=== PATIENT | male | born 1970 | race Caucasian/White ===

== ENCOUNTER 2023-05-23 08:12 | Outpatient (OUT) | payer BC, SELFPAY ==
[2023-05-24 04:07] LABS: CA 19-9 5 U/mL (0-35)
== END 2023-05-23 08:13 | disposition home or self-care (01) ==
PROVIDERS: PCP Family Medicine; Visit Provider Nurse Practitioner Family
DX: Z80.0 Family history of malignant neoplasm of digestive organs (principal)
CPT/HCPCS: 36415; 86301

== ENCOUNTER 2023-10-31 07:41 | Outpatient (OUT) | payer BC, SELFPAY ==
--- NOTE | 2023-10-31 07:57 | XR_ITS ---
The [address] [address] Patient Name: DOMINGO NIX MRN: [id number] date: 1970 Sex: M Assigned Patient Location: LAB Current Patient Location: LAB Accession/Order Number: [id number] Exam Date: 10/31/2023 08:00 Report Date: 10/31/2023 08:33 At the request of: IAM GIRON Procedure: XR chest 2V EXAMINATION: XR chest 2V HISTORY: Chronic Cough R05.3 COMPARISON: 08/31/2020 TECHNIQUE: PA and lateral FINDINGS: LUNGS: No significant pulmonary parenchymal abnormalities. VASCULATURE: No increased pulmonary vasculature. PLEURA: No pneumothorax, effusion, or pleural thickening. CARDIAC: No cardiomegaly or cardiac silhouette abnormality. MEDIASTINUM: No visible mass or adenopathy. BONES: No fracture or visible bone lesion. Remote healed right mid clavicle fracture OTHER: Negative. XR/XR chest 2V IMPRESSION: No acute cardiopulmonary process Electronically authenticated by: HI CASTRO Date: 10/31/2023 08:33
[2023-10-31 08:07] LABS: Basophils Absolute Auto 0.1 10^3/uL (0.0-0.1); Eosinophils Absolute Auto 0.6 10^3/uL (0.0-0.7); Eosinophils Percent Auto 7.2 % (0.9-7.0); Hematocrit 49.2 % (42.0-54.0); Hemoglobin 16.3 g/dL (14.0-18.0); Immature Granulocytes Abs Auto 0.08 10^3/uL (0.00-0.03); Mean Corpuscular HGB Conc 33.1 g/dL (29.9-35.2); Mean Corpuscular Volume 93.7 fL (80.0-94.0); Mean Platelet Volume 9.6 fL (9.5-13.5); Monocytes Absolute Auto 0.8 10^3/uL (0.3-0.8); Monocytes Percent Auto 10.3 % (1.7-12.0); Neutrophils Absolute Auto 4.2 10^3/uL (1.4-6.5); Neutrophils Percent Auto 54.5 % (43.0-75.0); Platelet Count 303 10^3/uL (150-450); Red Blood Count 5.25 10^6/uL (4.70-6.10); Red Cell Distribution Width 12.7 % (11.0-15.0); White Blood Count 7.6 10^3/uL (4.0-11.0)
[2023-10-31 08:53] LABS: Estimated Average Glucose 114 mg/dL; Glycohemoglobin A1C 5.6 % (4.5-6.2)
[2023-10-31 09:02] LABS: Alanine Aminotransferase 48 U/L (16-63); Albumin Globulin Ratio 0.9; Albumin Level 3.6 g/dL (3.4-5.0); Alkaline Phosphatase 79 U/L (46-116); Anion Gap 15.8; Aspartate Amino Transferase 25 U/L (15-37); BUN Creatinine Ratio 14.5; Bilirubin Total 0.7 mg/dL (0.2-1.0); Calcium 8.8 mg/dL (8.5-10.1); Carbon Dioxide 26.2 mmol/L (21.0-32.0); Chloride 103 mmol/L (98-107); Cholesterol 236 mg/dL (<=200); Estimated GFR (African America >60 (>=60); Estimated GFR (Non-African Ame >60 (>=60); Globulin 3.8 g/dL; Glucose 89 mg/dL (74-106); HDL Cholesterol 59 mg/dL (40-60); Sodium 141 mmol/L (136-145); Total Protein 7.4 g/dL (6.4-8.2); Triglycerides 121 mg/dL (<=150); VLDL CHOLESTEROL 24.2 mg/dL
[2023-10-31 09:39] LABS: Prostate Specific Antigen Scrn 3.87 ng/mL (<=4.00)
== END 2023-10-31 07:42 | disposition home or self-care (01) ==
LOC: LAB 07:41
PROVIDERS: PCP Family Medicine; Visit Provider Family Medicine
DX: Z00.00 Encounter for general adult medical examination without abnormal findings (principal); R05.3 Chronic cough; Z12.5 Encounter for screening for malignant neoplasm of prostate
CPT/HCPCS: 36415; 71046; 80053; 80061; 83036; 85025; G0103

== ENCOUNTER 2025-01-30 07:17 | Outpatient (OUT) | payer OTHER, SELFPAY ==
[2025-01-30 07:57] LABS: Basophils Absolute Auto 0.1 10^3/uL (0.0-0.1); Eosinophils Absolute Auto 0.6 10^3/uL (0.0-0.7); Hematocrit 46.8 % (42.0-54.0); Hemoglobin 15.8 g/dL (14.0-18.0); Immature Granulocytes Abs Auto 0.11 10^3/uL (0.00-0.03); Immature Granulocytes Pct Auto 1.4 % (0.0-0.5); Lymphocytes Absolute Auto 2.3 10^3/uL (1.2-3.8); Lymphocytes Percent Auto 28.1 % (20.5-60.0); Mean Corpuscular HGB Conc 33.8 g/dL (29.9-35.2); Mean Corpuscular Hemoglobin 31.4 pg (25.9-34.0); Mean Platelet Volume 9.8 fL (9.5-13.5); Monocytes Absolute Auto 0.7 10^3/uL (0.3-0.8); Monocytes Percent Auto 8.4 % (1.7-12.0); Neutrophils Absolute Auto 4.3 10^3/uL (1.4-6.5); Neutrophils Percent Auto 53.1 % (43.0-75.0); Platelet Count 255 10^3/uL (150-450); Red Blood Count 5.03 10^6/uL (4.70-6.10); Red Cell Distribution Width 12.7 % (11.0-15.0)
[2025-01-30 09:45] LABS: Alanine Aminotransferase 30 U/L (16-63); Albumin Globulin Ratio 1.1; Albumin Level 3.4 g/dL (3.4-5.0); Alkaline Phosphatase 76 U/L (46-116); Anion Gap 12.1; Aspartate Amino Transferase 17 U/L (15-37); BUN Creatinine Ratio 13.9; Bilirubin Total 0.4 mg/dL (0.2-1.0); Calcium 8.8 mg/dL (8.5-10.1); Chloride 107 mmol/L (98-107); Cholesterol 214 mg/dL (<=200); Estimated GFR (African America >60 (>=60 mL/min/1.73m^2); Estimated GFR (Non-African Ame >60 (>=60 mL/min/1.73m^2); Free T3 2.83 pg/mL (2.18-3.98); Glucose 95 mg/dL (74-106); HDL Cholesterol 53 mg/dL (40-60); Potassium 4.1 mmol/L (3.5-5.1); Sodium 141 mmol/L (136-145); Thyroid Stimulating Hormone 2.785 uIU/mL (0.358-3.740); Total Protein 6.4 g/dL (6.4-8.2); Triglycerides 106 mg/dL (<=150); Uric Acid 4.5 mg/dL (3.5-7.2); VLDL CHOLESTEROL 21.2 mg/dL
[2025-01-30 10:19] LABS: Estimated Average Glucose 120 mg/dL; Glycohemoglobin A1C 5.8 % (4.5-6.2)
[2025-01-31 04:07] LABS: CA 19-9 6 U/mL (0-35); PSA, Free 0.99 ng/mL; Prostate Specific Ag 3.6 ng/mL (0.0-4.0)
[2025-01-31 09:08] LABS: Insulin 15.9 uIU/mL (2.6-24.9)
== END 2025-01-30 07:18 | disposition home or self-care (01) ==
LOC: LAB 07:21
PROVIDERS: PCP Family Medicine; Visit Provider Family Medicine
DX: Z00.00 Encounter for general adult medical examination without abnormal findings (principal); R34 Anuria and oliguria; Z12.5 Encounter for screening for malignant neoplasm of prostate
CPT/HCPCS: 36415; 80053; 80061; 83036; 83525; 84153; 84154; 84436; 84443; 84481; 84550; 85025; 86301

== ENCOUNTER 2025-06-13 08:14 | Outpatient (OUT) | payer OTHER, SELFPAY ==
--- OUTSIDE RECORDS SUMMARY | 2025-01-28 09:45 | XMS_ITS ---
Author Organization The [facility] in [place] Address [address] [place] [address] Care Team Providers Care Physician Specialist Name Role Phone Fernando Dai Primary Care Provider [phone] Allergies No Known Allergies Results Component Value Reference Range Notes UA DIP NONAUTO WO MICRO (810 02) - IN OFFICE Reviewed date:01/28/2025 01:15:51 PM Interpretation: Performing Lab: Notes/Report: COLOR Yellow CLARITY Clear GLUCOSE Neg BILIRUBIN Neg KETONE Neg SPECIFIC GRAVITY 1.010 BLOOD Neg PH 6 PROTEIN Neg UROBILINOGEN Neg NITRITE Neg LEUKOCYTE ESTERASE Neg REASON FOR VISIT Prostate Questions, Energy Level Down, Trouble with Urination Medications Medication SIG (Take, Route, Fr equency, Duration) Notes Start Date End Date Status levoFLOXacin 750 MG 1 tablet Orally Once a day for 10 days 01/28/2025 Active Social History Tobacco Use: Social History Observation Description Date Details (start date - stop date) Light tobacco s moker NA - NA Tobacco Use/Smoking Question Answer Notes Patient is a light tobacco smoker AUDIT-C (Standard) Question Answer Notes Did you have a drink containing alcohol in the p ast year? No Points 0 Interpretation Negative Vital Signs Weight 247.0 lbs 01/28/2025 Height 71 in 01/28/2025 Blood pressure systolic 124 mm Hg 01/29/20 25 Blood pressure diastolic 84 mm Hg 025 BMI 34.45 kg/m2 01/28/2025 Encounters Encounter Location Date Provider Diagnosis [facility] [address] [place] [address] 01/28/2025 Fernando Dalecintia Urination decrease R 34 and Well adult Z00.00 Assessments Encounter Date Diagnosis (ICD Code) Assessment Notes Treatment Notes Treatment Clinical Notes Section Notes 01/28/2025 Urination decrease (ICD-10 - R34) 01/28/2025 Well adult (ICD-10 - Z00.00) Plan Of Treatment Medication Medication Name Sig Start Date Stop Date Notes levoFLOXacin 750 MG 1 tablet Orally Once a day for 10 days 01/28/2025 Pending Test Test Name Order Date HEMOGLOBIN A1C (GLYCO) 01/28/2025 INSULIN, TOTAL 01/28/2025 LIPID PANEL (CHOL/TRIG/HDL/LDL) 01/29/20 25 URIC ACID 01/28/2025 PSA-FREE AND TOTAL 01/28/2025 STOOL OCCULT BLOOD 01/28/2025 CA 19-9 01/28/2025 THYROID PANEL (T4/TSH/FREE T3) CMP (COMP MET MENDEZ) w/eGFR CKD-EPI 2024 CBC WITH DIFF 01/28/2025 Progress Notes * Kristopher ARCE ADOB: 2 (54 yo M)Acc No.[id number]:01/28/2025 Progress Note Patient: Kristopher DENG Provider: Leigh Dai ([facility])MD :1970 A ge:54 Y S ex:Male Date:01/28/2025 Address:[address] [place], [place] [id number] Check In:12:58 PM ESTCheck O ut:01:22 PM EST Subjective: * Chief Complaints: * P rostate QuestionsEnergy Level Down, Trouble with Urination * HPI: G eneral: prostat issues - getting up 2-3 tyoe a night - been going on for awhile. * ROS: E ENT: hearing changes d enies. v isual changes d enies.?non-healing mouth sores d enies. s wollen glands or neck lumps d enies. h oarseness d enies. s ore throat d enies. d ifficulty swallowing d enies. n ose bleeds d enies. n lori congestion d enies. e ar ache d enies. e ar discharge?denies. r inging in ears d enies. l ight sensitivity d enies. e ye pain d enies. b lurring d enies. e ye irritation d enies. d ouble vision d enies.?vision loss d enies. G eneral/Constitutional: Sweats: D enies. F atigue d enies. S leep problems d enies. A norexia d enies. M alaise d enies. W eight loss d enies.?Fatigue or Weakness d enies. F ever or Chills d enies. C ardiovascular: Shortness of Breath w/lying flat d enies. L ightheadedness/dizziness d enies. C hest tightness/ heavy pressure d enies. S welling of legs, ankles, or feet d enies. W aking up with shortness of breath d enies. C hest pain denies. P alpitations d enies. W eight gain d enies. R espiratory: Chronic or frequent cough d enies. C oughing up blood?denies. D ifficulty breathing d enies. P roductive cough d enies. S noring?denies. S hortness of breath that awakens from sleep (PND) d enies. C hest pain d enies. S putum production d enies. W heezing d enies. M usculoskeletal: Joint pain d enies. J oint Fluid d enies. B ack pain d enies. K nee pain d enies. N willow pain d enies. J oint Stiffness d enies. M uscle cramps d enies. W eakness of muscles d enies. A rthritis d enies. M uscle aches d enies. P ain in shoulder(s) d enies. S wollen joints d enies. * Active Problem List K20.0 Eosinophilic esophag itis Modified On:03/07/2023W/U Status:confirmed N45.1 Epididymitis Modified On:03/07/2023W/U Status:confirmed S42.017A Nondisplaced fractur e of sternal end of right clavicle, initial encounter for closed fracture Modified On:03/07/2023 Status:confirmed T18.128A Food in esophagus ca using other injury, initial encounter Modified On:03/07/2023 Status:confirmed Z71.9 Counseling, unspecif ied Modified On:03/07/2023 Status:confirmed G56.00 Carpal tunnel syndro me Modified On:03/07/2023 Status:confirmed K21.9 Esophageal reflux Modified On:03/07/2023 Status:confirmed M54.9 Back pain Modified On:03/07/2023 Status:confirmed M51.27 Lumbosacral disc her niation Modified On:03/07/2023 Status:confirmed M54.16 Lumbar radiculopathy Modified On:03/07/2023 Status:confirmed J32.9 Sinusitis Modified On:03/07/2023 Status:confirmed J42 Chronic bronchitis Modified On:03/07/2023 Status:confirmed J06.9 URI (upper respirato ry infection) Modified On:03/07/2023 Status:confirmed L03.90 Cellulitis Modified On:03/07/2023 Status:confirmed J30.2 Seasonal allergic rh initis Modified On:03/07/2023 Status:confirmed L25.9 Contact dermatitis Modified On:03/07/2023 Status:confirmed L23.7 Rhus dermatitis Modified On:03/07/2023 Status:confirmed N45.1 Epididymitis, right Modified On:03/07/2023 Status:confirmed N45.1 Epididymitis, left Modified On:03/07/2023 Status:confirmed Z98.52 History of vasectomy Modified On:03/07/2023 Status:confirmed M75.40 Shoulder impingement syndrome Modified On:03/07/2023 Status:confirmed R56.9 Generalized-onset se izures Modified On:03/07/2023 Status:confirmed U07.1 COVID-19 Modified On:03/07/2023 Status:confirmed E66.3 Overweight Modified On:03/07/2023W/U Status:confirmed J30.2 Other seasonal aller gic rhinitis Modified On:01/29/2023W/U Status:confirmed Z00.00 Well adult Modified On:10/29/2023W/U Status:confirmed R05.3 Chronic cough Modified On:10/29/2023W/U Status:confirmed D36.9 Benign neoplasm, uns pecified site Modified On:11/28/2023W/U Status:confirmed * Medical History: * Surgical History: B ack Surgery Colonoscopy 11/26/2023 * Hospitalization/Major Diagno stic Procedure: D enies Past Hospitalization * Family History: F ather: alive, diagnosed with Diabetes mellitus without mention of complication, type II or unspecified type, not stated as uncontrolled. M other: alive. P aternal uncle: alive, pancreatic cancer, diagnosed with Other malignant neoplasm of unspecified site. P aternal aunt: , diagnosed with Other malignant neoplasm of unspecified site. * Social History: T obacco Use: T obacco Use/Smoking P atient is a l ight tobacco smoker D rug/Alcohol: A ELIOT-C (Standard) D id you have a drink containing alcohol in the past year? N o P oints 0 I nterpretation N egative * Medications: D iscontinuedAmoxicillin-Pot Clavulanate 875-125 MG Tablet 1 tablet Orally every 12 hrs Diclofenac Sodium 75 MG Tablet Delayed Release 1 tablet as needed Orally Twice a day Triamcinolone Acetonide 0.1 % Cream 1 application Externally Twice a day Ventolin HFA(Albuterol Sulfate HFA) 108 (90 Base) MCG/ACT Aerosol Solution 2 puff as needed Inhalation every 4 hrs Medication List reviewed and reconciled with the patientDiscontinued Amoxicillin-Pot Clavulanate 875-125 MG Tablet 1 tablet Orally every 12 hrs Discontinued Diclofenac Sodium 75 MG Tablet Delayed Release 1 tablet as needed Orally Twice a day Discontinued Triamcinolone Acetonide 0.1 % Cream 1 application Externally Twice a day Discontinued Ventolin HFA(Albuterol Sulfate HFA) 108 (90 Base) MCG/ACT Aerosol Solution 2 puff as needed Inhalation every 4 hrs Medication List reviewed and reconciled with the patient * Allergies: N .K.D.A.no[Allergies Verified] Objective: * Vitals: W t:247.0lbs, Ht: 71 in, BP:124/84mm Hg, BMI:34.45Index, Ht-cm: 180.34 cm, Wt-k.04 kg. * Examination: P hysical Exam: GENERAL: w ell developed, well nourished, in no acute distress. HEAD: n ormocephalic/atraumatic. EYES: p upils equal, round and reactive to light, conjunctivae and sclerae normal. EARS: n o deformity or lesion of external ear, canals and TM appear normal bilaterally, TM's intact, not inflamed with normal light reflex, hearing grossly normal to conversational speech. NOSE: n o deformity, discharge, inflammation, or lesions.? MOUTH: m ucous membranes moist, normal oropharynx and posterior pharynx without lesions or exudates, tongue normal, dentition normal. NECK: n willow supple, no masses or palpable cervical nodes, trachea midline, thyroid without nodules, masses, tenderness, or enlargement. CHEST: n o chest wall deformity, no chest wall tenderness.? LUNGS: n ormal respiratory effort and clear to auscultation, no wheezes, rales, or rhonchi, good air exchange. CARDIO: r egular rate and rhythm, normal S1 and S2, nor murmur, rub, or gallop. PULSES: n ormal capillary refill. ABDOMEN: s oft, non-distended, non-tender, no masses. MUSCULOSKELETAL: n o deformity or scoliosis noted, normal range of motion, joints normal, no erythema, edema, effusion, or ecchymosis. EXTREMITY: n o clubbing, cyanosis, edema, or deformity with normal ROM in both upper and lower bilateral extremities. NEUROLOGIC: g rossly normal. SKIN: n o rashes, ulcerations, or suspicious lesions. LYMPH NODES: n o cervical adenopathy, nodes normal. MENTAL STATUS: a lert and oriented x3, normal mood and affect. Assessment: * Assessment: 1. U rination decrease - R34 (Primary) 2 . W ell adult - Z00.00 ? Plan: * Treatment: 2. W ell adult L AB: HEMOGLOBIN A1C (GLYCO) L AB: INSULIN, TOTAL L AB: LIPID PANEL (CHOL/TRIG/HDL/LDL) L AB: URIC ACID L AB: STOOL OCCULT BLOOD L AB: THYROID PANEL (T4/TSH/FREE T3) L AB: CMP (COMP MET MENDEZ) w/eGFR CKD-EPI L AB: CBC WITH DIFF * Labs: * L ab: UA DIP NONAUTO WO MICRO (79505) - IN OFFICE (Collection Date & Time - 01/28/2025) Value Reference Range C OLOR Yellow * C LARITY Clear * G LUCOSE Neg * B ILIRUBIN Neg * K ETONE Neg * S PECIFIC GRAVITY 1.010 * B LOOD Neg * P H 6 * P ROTEIN Neg * U ROBILINOGEN Neg * N ITRITE Neg * L EUKOCYTE ESTERASE Neg * Procedure Codes: 8 1002 URINALYSIS WO MICRO * Preventive Medicine: Screenings/Counseling: B NH ACTION PLAN Below Normal BMI Follow-up D ietary management education, guidance, and counseling * * Sign off status: Completed Visit Status: C HK (Check Out) true * Provider: Leigh Dai ([facility])MD Date: 0 01/28/2025 Generated for Printi ng/Faxing/eTransmitting on: 0 06/13/2025 08:20 AM EDT History and Physical Notes * HPI (History of Present Illness) Category Sub-Category Detail Notes Category Not es General prostat issues - getting up 2-3 tyoe a night - been going on for awhile Examination Category Sub-Category Detail Notes Category Not es Physical Exam GENERAL: well developed, well nourished, in no acute distress HEAD: normocephalic/atraum atic EYES: pupils equal, round and reactive to light, conjunctivae and sclerae normal EARS: no deformity or lesi on of external ear, canals and TM appear normal bilaterally, TM's intact, not inflamed with normal light reflex, hearing grossly normal to conversational speech NOSE: no deformity, discha rge, inflammation, or lesions MOUTH: mucous membranes heather st, normal oropharynx and posterior pharynx without lesions or exudates, tongue normal, dentition normal NECK: neck supple, no mass es or palpable cervical nodes, trachea midline, thyroid without nodules, masses, tenderness, or enlargement CHEST: no chest wall deform ity, no chest wall tenderness LUNGS: normal respiratory e ffort and clear to auscultation, no wheezes, rales, or rhonchi, good air exchange CARDIO: regular rate and rhy thm, normal S1 and S2, nor murmur, rub, or gallop PULSES: normal capillary ref ill ABDOMEN: soft, non-distended, non-tender, no masses RECTAL: MUSCULOSKELETAL: no deformity or scol iosis noted, normal range of motion, joints normal, no erythema, edema, effusion, or ecchymosis EXTREMITY: no clubbing, cyanosi s, edema, or deformity with normal ROM in both upper and lower bilateral extremities NEUROLOGIC: grossly normal SKIN: no rashes, ulceratio ns, or suspicious lesions LYMPH NODES: no cervical adenopat hy, nodes normal MENTAL STATUS: alert and oriented x 3, normal mood and affect
--- OUTSIDE RECORDS SUMMARY | 2025-01-30 08:31 | XMS_ITS ---
Author Organization The [facility] in [place] Address [address] [place] [address] Care Team Providers Care Chief Of Hospital Medicine Name Role Phone Fernando Dai Primary Care Provider REASON FOR VISIT lab results- Encounters Encounter Location Date Provider Diagnosis [facility] [address] [place] [address] 01/30/2025 Fernando Dai Plan Of Treatment No Information Progress Notes * Kristopher ARCE ADOB: 2 (54 yo M)Acc No.[id number]:01/30/2025 Patient: Kristopher DENG :1970 A ge:54 Y S ex:Male Address:[address] [place] [address], [phone] * true * Date: Generated for Farzadi amilcar/Jaydeg/eTransmitting on: 0 06/13/2025 08:21 AM EDT
--- OUTSIDE RECORDS SUMMARY | 2025-02-01 09:16 | XMS_ITS ---
Author Organization The [facility] in [place] Address [address] [place] [address] Care Team Providers Care Meter Inspector Name Role Phone Fernando Dai Primary Care Provider REASON FOR VISIT Cancer Markers Encounters Encounter Location Date Provider Diagnosis [address] [address] 02/01/2025 Fernando Dai Plan Of Treatment No Information Progress Notes * Kristopher ARCE ADOB: [birth year] (54 yo M)Acc No.[id number]:02/01/2025 Patient: Kristopher DNEG :1970 A ge:54 Y S ex:Male Address:[address] [place] [address], [address] * true * Date: Generated for Irving fitzegrald/Brook/eTransmitting on: 0 06/13/2025 08:21 AM EDT
--- OUTSIDE RECORDS SUMMARY | 2025-05-19 04:26 | XMS_ITS ---
Author Organization The [facility] in [place] Address [address] [place] [address] Care Team Providers Care Facility Planner Name Role Phone Fernando Dai Primary Care Provider [phone] REASON FOR VISIT sinus congestion Medications Medication SIG (Take, Route, Fr equency, Duration) Notes Start Date End Date Status levoFLOXacin 750 MG 1 tablet Orally Once a day for 10 days 01/28/2025 Active Encounters Encounter Location Date Provider Diagnosis [facility] [address] [place] [address] 05/19/2025 Fernando Dai Urination decrease R 34 Assessments Encounter Date Diagnosis (ICD Code) Assessment Notes Treatment Notes Treatment Clinical Notes Section Notes 05/19/2025 Urination decrease (ICD-10 - R34) Plan Of Treatment Medication Medication Name Sig Start Date Stop Date Notes levoFLOXacin 750 MG 1 tablet Orally Once a day for 10 days 01/28/2025 Progress Notes * Kristopher ARCE ADOB: [birth year] (54 yo M)Acc No.[id number]:05/19/2025 Patient: Kristopher DENG :1970 A ge:54 Y S ex:Male Address:[address] [place] [address], [phone] * Refills Refill levoFLOXacin Tablet, 750 MG, Orally, 14, 1 tablet, Once a day, 10 days * true * Date: Generated for Farzadi amilcar/Faxing/eTransmitting on: 0 06/13/2025 08:22 AM EDT
--- OUTSIDE RECORDS SUMMARY | 2025-06-12 05:30 | XMS_ITS ---
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 Name Role Phone Fernando Dai Primary Care Provider [phone] Allergies No Known Allergies Results Component Value Reference Range Notes GLUCOSE - IN OFFICE (Not yet reviewed by provider) Interpretation: Performing Lab: Notes/Report: Glucose 115 74 - 106 MG/DL UA DIP NONAUTO WO MICRO (810 02) - IN OFFICE (Not yet reviewed by provider) Interpretation: Performing Lab: Notes/Report: COLOR dark yellow CLARITY clear GLUCOSE neg BILIRUBIN neg KETONE neg SPECIFIC GRAVITY 1.015 BLOOD neg PH 6.5 PROTEIN neg UROBILINOGEN neg NITRITE neg LEUKOCYTE ESTERASE neg REASON FOR VISIT Presents to office alone for c/o dry mouth, frequent urination, excessive thirst and hunger, left foot feels like pins and needles Social History Tobacco Use: Social History Observation Description Date Details (start date - stop date) Light tobacco s moker NA - NA Tobacco Use/Smoking Question Answer Notes Patient is a light tobacco smoker AUDIT-C (Standard) Question Answer Notes Did you have a drink containing alcohol in the p ast year? No Points 0 Interpretation Negative Problems Problem Type SNOMED Code ICD Code Onset Dates Problem Status W/U Status Risk Notes Problem Excessive thirst (90840767) Polydipsia (R63.1) Active confirmed Vital Signs Weight 248.0 lbs 06/12/2025 Height 71 in 06/12/2025 Blood pressure systolic 112 mm Hg 06/12/20 25 Blood pressure diastolic 74 mm Hg 025 BMI 34.59 kg/m2 06/12/2025 Encounters Encounter Location Date Provider Diagnosis [facility] [address] [place] [address] 06/12/2025 Fernando Dai Polydipsia R63.1 Assessments Encounter Date Diagnosis (ICD Code) Assessment Notes Treatment Notes Treatment Clinical Notes Section Notes 06/12/2025 Polydipsia (ICD-10 - R63.1) if labs are normal 0 needs sleep studty - daytime fatigue and snoring Plan Of Treatment Treatment Notes Assessment Notes Polydipsia if labs are normal 0 needs sleep studty - daytime fatigue and snoring Pending Test Test Name Order Date GLUCOSE - IN OFFICE 06/12/2025 UA DIP NONAUTO WO MICRO (70807) - IN OFF ICE 06/12/2025 GLYCOHEMOGLOBIN A1C 06/12/2025 INSULIN 06/12/2025 PROF 14(COMP METB) 06/12/2025 Progress Notes * PAULINANIYAKristopher ADOB: 2 (54 yo M)Acc No.[id number]:06/12/2025 UNLOCKED PROGRESS NOTE Progress Note Patient: Kristopher DENG Provider: Leigh Dai ([facility])MD :1970 A ge:54 Y S ex:Male Date:06/12/2025 Address:[address] [place], [place] [phone] Check In:09:21 AM ESTCheck O ut:10:08 AM EST Subjective: * Chief Complaints: * 1 . Presents to office alone for c/o dry mouth, frequent urination, excessive thirst and hunger, left foot feels like pins and needles. * HPI: G eneral: inc thirs and daytime fatigue and snoring. * ROS: E ENT: hearing changes d [...] enies. S wollen joints d enies. * Medical History: O verweight, Chronic bronchitis, COVID-19, Contact dermatitis, Shoulder impingement syndrome, Epididymitis, left, Epididymitis, right, Carpal tunnel syndrome, Eosinophilic esophagitis, Food in esophagus causing other injury, initial encounter, Esophageal reflux, Cellulitis, Generalized-onset seizures, Epididymitis, Lumbosacral disc herniation, Lumbar radiculopathy, Nondisplaced fracture of sternal end of right clavicle, initial encounter for closed fracture, Seasonal allergic rhinitis, Rhus dermatitis, Sinusitis, Counseling, unspecified, Back pain, History of vasectomy, URI (upper respiratory infection). * Surgical History: B ack Surgery , Colonoscopy 11/26/2023. * Family History: F ather: alive, diagnosed [...] I nterpretation N egative * Medications: D iscontinued levoFLOXacin 750 MG Tablet 1 tablet Orally Once a day , Medication List reviewed and reconciled with the patient * Allergies: N .K.D.A. Objective: * Vitals: W t:248.0lbs, Ht: 71 in, BP:112/74mm Hg, BMI:34.59Index, Ht-cm: 180.34 cm, Wt-k.49 kg. * Examination: P hysical Exam: GENERAL: [...] mood and affect. Assessment: * Assessment: 1. P olydipsia - R63.1 (Primary) Plan: * Treatment: * Labs: * L ab: GLUCOSE - IN OFFICE (Collection Date & Time - 06/12/2025) Value Reference Range G lucose 115 74 - 106 MG/DL ?Lab: UA DIP NONAUTO WO MICRO (63478) - IN OFFICE (Collection Date & Time - 06/12/2025)* Value Reference Range C OLOR dark yellow * C LARITY clear * G LUCOSE neg * B ILIRUBIN neg * K ETONE neg * S PECIFIC GRAVITY 1.015 * B LOOD neg * P H 6.5 * P ROTEIN neg * U ROBILINOGEN neg * N ITRITE neg * L EUKOCYTE ESTERASE neg * Procedure Codes: 8 2948 GLUCOSE;BLOOD,REGNT.STRIP, 96280 URINALYSIS WO MICRO * Preventive Medicine: Screenings/Counseling: B [place] ACTION PLAN Above Normal BMI Follow-up D ietary management education, guidance, and counseling See treatment section of progress note for complete details of management plan. T OBACCO ACTION PLAN Patient counselled on the dangers of tobacco use and urged to quit. 0 06/12/2025 . * * Electronic signature of Fernando Dai MD, [id number] on 06/13/2025 at 08:20 AM EDT Sign off status: Pending Visit Status: Scout LACKEY (Check Out) * Provider: Leigh Dai ([facility])MD Date: 0 06/12/2025 Generated for Printi ng/Faxing/eTransmitting on: 0 06/13/2025 08:20 AM EDT History and Physical Notes * HPI (History of Present Illness) Category Sub-Category Detail Notes Category Not es General inc thirs and d aytime fatigue and snoring Examination Category Sub-Category Detail Notes Category Not [...]
--- OUTSIDE RECORDS SUMMARY | 2025-06-13 08:19 | XMS_ITS | CCD ---
Author Organization [facility] Care Team Providers Care Bath Design Sales Consultant Name Role Phone DR IAM DAI Admitting Unavailable MACK, DR VITALE Attending Unavailable MACK, DR VITALE Primary Care Unavailable DR IAM DAI Consulting Unavailable DR THERESE ARCE Consulting Unavailable MD Jordy Valerio Primary Care Provider JESSICA Waters Attending Provider Lois Waters Unavailable Lois Waters Attending Unavailable Lois Waters Admitting Unavailable Jordy Valerio Primary Care Unavailable Iam Dai Primary Care Physician [phone] Keith GUADARRAMA Referring Unavailable Keith GUADARRAMA Attending Unavailable NILLKeith Admitting Unavailable NILLKeith Attending Unavailable Medications Current Medications Medication Drug Class(es) Dates Sig (Normalized) Sig (Original) Aircast Sport Ankle Brace/Rght - (1 source) Start: 10-28-2022 Aircast Sport Ankle Brace/Rght - as directed Oct, Active Problems Problem Classification Problem Date Documented Date Episodic/Chronic Esophageal disorders (10 sources) Eosinophilic esophagitis; Translations: [Gastroesophageal reflux disease] 10-04-2023 Chronic Other and unspecified benign neoplasm (1 source) Polyp of colon; Translations: [Polyp of colon] Onset: 11-26-2023 Episodic Other and unspecified benign neoplasm (1 source) Benign neoplasm of colon; Translations: [Benign neoplasm of colon, unspecified] Onset: 12-07-2023 Episodic Other and unspecified benign neoplasm (3 sources) Adenomatous polyp of colon 12-07-2023 Episodic Other and unspecified benign neoplasm (3 sources) History of polyp of colon; Translations: [Personal history of colonic polyps] Onset: 06-13-2024 Episodic Other non-traumatic joint disorders (1 source) Pain in right ankle and joints of right foot Episodic Other nutritional; endocrine; and metabolic disorders (5 sources) Body mass index 30+ - obesity 10-10-2023 Chronic Other nutritional; endocrine; and metabolic disorders (5 sources) Obesity 10-10-2023 Chronic Other screening for suspected conditions (not mental disorders or infectious disease) (1 source) Screening for malignant neoplasm of colon done; Translations: [Encounter for screening for malignant neoplasm of colon] Onset: 10-10-2023 Episodic Other upper respiratory disease (5 sources) Seasonal allergic rhinitis 10-04-2023 Chronic Spondylosis; intervertebral disc disorders; other back problems (5 sources) Lumbar radiculopathy 10-04-2023 Episodic Sprains and strains (1 source) Sprain of unspecified ligament of right ankle, initial encounter Episodic Unclassified (1 source) COUGH, UNSPECIFIED; Translations: [COUGH, UNSPECIFIED] Onset: 09-09-2021 Unclassified (1 source) Pain in right ankle and joints of right foot; Translations: [Pain in right ankle and joints of right foot] Onset: 10-28-2022 Unclassified (5 sources) Patient encounter status 10-10-2023 Viral infection (4 sources) COVID-19; Translations: [COVID-19] Onset: 08-31-2021 Results Test Name Value Interpretation Reference Range Facility Ambulatory Visit Summaryon 0 06-10-2025 Ambulatory Visit Summary Ambulatory Visit Summary KRISTOPHER ARCE :1970 Visit Date:06/10/2025 Ambulatory Visit Instructions Your Care Team Attending Physician - Keith GUADARRAMA MD Primary Care Physician - Iam Dai MD Procedures Performed Flexible sigmoidoscopy (06/13/2024), Colonoscopy (11/26/2023), History of lumbar spine surgery, Vasectomy. Discharge Vitals Heart Rate (Peripheral) 72 Respiratory Rate 16 Blood Pressure 128/80 Height 180.3 cm Height 71 in Weight 114.3 kg Weight 251.988 lb BMI 35.16 Allergies No Known Allergies Problems Ongoing - Any problem that you are currently receiving treatment for. BMI 34.0-34.9,adult Eosinophilic esophagitis GERD (gastroesophageal reflux disease) Lumbar radiculopathy Obesity Screening for malignant neoplasm of colon Seasonal allergic rhinitis Tubulovillous adenoma of colon Patient Survey You may receive a survey via text or e-mail asking about your office visit. Please share your experience with us by completing your survey. We appreciate your feedback and thank you for choosing us for your care. Patient Portal You may access all of your results and other medical record information on our secure patient portal. If you are not signed up for this yet, please contact Health Information Management at [phone] to get signed up today. Language Information Language assistance services are available as needed. [facility] Reminderson 05-13-2025 Reminders Reminders From: Alivia Kemp LPN To: N - Clinical; Sent: 06/15/2024 18:03:47 EDT Show up: 05/13/2025 07:00:00 EDT Subject: colonoscopy recall Due Date/Time: 06/13/2025 07:00:00 EDT Reminder/Recall Patient due for surveillance colonoscopy 06/13/2025 due to history of large villous adenoma removed in piecemeal fashion on 11/2023. future appointmentFuture Appointments [facility] Appt. Date: 06/10/2025 3:40 PM Scheduled Provider: Keith Guadarrama MD [address] [place] [address], [facility] [address], [address] [place] [address], [phone] Phone: -- Fax: -- [facility] Main OR Intraoperative Recor don 06-16-2024 Main OR Intraoperative Record Main OR Intraoperative Record IntraOp Document Type FT Summary Primary Physician: Keith GUADARRAMA MD Finalized Date/Time: 06/16/24 11:09:38 Pt. Name: KRISTOPHER ARCE/Sex: 1970 Male Med Rec #: [id number] Physician: Keith GUADARRAMA MD Financial #: [id number] Pt. Type: O Room/Bed: / Admit/Disch: 06/13/24 08:07:39 - 06/13/24 23:59:59 Institution: Case Times FT Entry 1 Patient Times In Room 06/13/24 09:31:00 Out Room 06/13/24 09:47:00 Procedure Times Start 06/13/24 09:35:00 Stop 06/13/24 09:44:00 Anesthesia Times Start 06/13/24 09:31:00 Stop 06/13/24 09:47:00 Last Modified By: Jake Hamlin RN 06/13/24 09:48:36 General Comments: 06/16/24 Chart opened for charge review per Alysa Mendez RN. [place] Case Attendance FT Entry 1 Entry 2 Entry 3 Case Attendee Emma SABILLON CRNA, Queen Viridiana, Allie GUADARRAMA MD, Keith May Role Performed SALES REPRESENTATIVE ELECTRIC SERVICE Scrub - Primary Surgeon - Primary Time In 06/13/24 09:31:00 06/13/24 09:31:00 06/13/24 09:31:00 Time Out 06/13/24 09:47:00 06/13/24 09:47:00 06/13/24 09:47:00 Procedure SIGMOIDOSCOPY(.) SIGMOIDOSCOPY(.) SIGMOIDOSCOPY(.) Comments Dr. Baca supervising case Last Modified By: Jake Hamlin RN, RN, Jake Barakat RN 06/13/24 09:48:50 06/13/24 09:48:50 06/13/24 09:48:50 Entry 4 Case Attendee Jake Hamlin RN Role Performed Operations And Maintenance Manager - Primary Time In 06/13/24 09:31:00 Time Out 06/13/24 09:47:00 Procedure SIGMOIDOSCOPY(.) Comments Last Modified By: Jake Hamlin RN 06/13/24 09:48:50 Perioperative Protocols FT Pre-Care Text: Implements protective measures prior to operative or invasive procedure, confirms identity before the operative or invasive procedure, verifies operative procedure, surgical site, and laterality Entry 1 Procedure(s) SIGMOIDOSCOPY(.) Patient Identity Birthday, ID Band Verified (select at Check, Patient least 2): Participation Consents / H and P Anesthesia Consent, Operative Site N/A Verified H&P, Surgery/Procedure Marking Verified Consent Surgical Site No Laterality Verified n/a Verified Procedure Verified Yes Correct Patient Yes Position Verified Availability Equipment, Medication Prep Dry n/a Verified (If Applicable) PreOp Antibiotic No Time Out Emma SABILLON CRNA, Viridiana Borden Micala E, ARETHA KAISER, Yakelin Pandya RN, Morgan E Time Out Complete 06/13/24 09:32:00 Outcomes Met? Yes Last Modified By: Jake Hamlin RN 06/13/24 09:33:59 Post-Care Text: The patient is free from signs and symptoms of injury caused by extraneous objects Allergy Information FT Pre-Care Text: Verifies allergies Entry 1 Allergies Reviewed? Yes Allergies Reviewed Self/Patient With Outcomes Met? Yes Last Modified By: Jake Hamlin RN 06/13/24 09:34:36 Post-Care Text: The patient received appropriate medication(s) safely administered during the perioperative period Surgical Procedures FT Entry 1 Procedure Description Procedure SIGMOIDOSCOPY Modifiers . Surgeon Description Sigmoidoscopy Primary Procedure Yes Primary Surgeon Keith GUADARRAMA MD Start 06/13/24 09:35:00 Stop 06/13/24 09:44:00 Anesthesia Type General Surgical Service General Wound Class 2 - Clean-Contaminated Last Modified By: Vanessa MA, BSN, Josefa 06/16/24 11:08:57 General Case Data FT Pre-Care Text: Classifies surgical wound, implements aseptic technique, initiates traffic control Entry 1 Case Information OR ENDO 2 FT Case Level Level 2 Wound Class 2 - Clean-Contaminated Specialty General ASA Class 2 Preop Diagnosis History of colon polyps Postop Same As Preop No Postop Diagnosis Normal sigmoidoscopy Outcomes Met? Yes Last Modified By: Jake Hamlin RN 06/13/24 09:45:35 Post-Care Text: The patient is free from signs and symptoms of infection Skin Assessment (Pre Procedure) FT Pre-Care Text: Implements protective measures to prevent skin/ tissue injury due to thermal or mechanical sources Evaluates for signs and symptoms of physical injury to skin and tissue Entry 1 Skin Integrity Dry, Warm Skin Abnormality No Outcomes Met? Yes Last Modified By: Jake Hamlin RN 06/13/24 09:34:48 Post-Care Text: The patient is free from signs and symptoms of injury caused by extraneous objects Patient Positioning FT Pre-Care Text: Identifies physical alterations that require additional precautions for procedure-specific positioning, verifies presence of prosthetics or corrective devices, positions the patient, evaluates the patient for signs and symptoms of injury as a result of positioning Entry 1 Procedure SIGMOIDOSCOPY(.) Body Position Lateral, right side up Feet Uncrossed? Yes Left Arm Position Resting at Side Right Arm Position Resting at Side Left Leg Position Extended Right Leg Position Extended Positioning Device Pillow Under Head Large Press Points Checked Yes By Yakelin MA, Jake Caal (more content not included)... Normal [facility] Discharge Instructionson Discharge Instructions Discharge Instructions KRISTOPHER ARCE :1970 Visit Date:06/13/2024 Inpatient Discharge Instructions Your Care Team Admitting Physician - Keith GUADARRAMA MD Referring Physician - Keith GUADARRAMA MD Reason for Your Visit HISTORY OF COLON POLYPS Your Diagnosis Personal history of colonic polyps Procedure History Flexible sigmoidoscopy (06/13/2024), Colonoscopy (11/26/2023), History of lumbar spine surgery, Vasectomy. Discharge Vitals Temperature (Temporal Artery) 36.5 ?C Heart Rate (Monitored) 69 Respiratory Rate 24 Blood Pressure 111/77 Height 152.4 cm Weight 111.13 kg What to do next Instructions From Your Doctor Event Name Event Result Discharge Activity Resume normal activities in 24 hours, Arrange for a responsible adult supervision for 24 hours Discharge Restrictions No driving for 24 hrs, Do not operate machinery or tools, Do not make important decisions for 24 hours, Do not drink alcoholic beverages for 24 hours Discharge Diet(s) Regular Call Your Doctor For Persistent or heavy bleeding, Temperature above 101.5 degrees, Redness, swelling, or pus at operative site, Severe pain at the operative site, Persistent vomiting Discharge Instructions Discharge Instructions New Follow Up Appointments after Discharge Follow Up with Keith GUADARRAMA When: Only if needed Where: [address] [place], [place] [address]dict [place], [address] [address]- [facility] (1) Test Results No qualifying data available. Allergies No Known Allergies Problems Ongoing - Any problem that you are currently receiving treatment for. BMI 34.0-34.9,adult Eosinophilic esophagitis GERD (gastroesophageal reflux disease) Lumbar radiculopathy Obesity Screening for malignant neoplasm of colon Seasonal allergic rhinitis Tubulovillous adenoma of colon Education Materials Colonoscopy Care After Surgery Please read the instructions outlined below and refer to this sheet in the next few weeks. These discharge instructions provide you with general information on caring for yourself after you leave the hospital. Your doctor may also give you specific instructions. While your treatment has been planned according to the most current medical practices available, unavoidable complications occasionally occur. If you have any problems or questions after discharge, please call your doctor. ACTIVITY You may resume your regular activity, but move at a slower pace for the next 24 hours. Take frequent rest periods for the next 24 hours. Walking will help get rid of the air and reduce the bloated feeling in your abdomen (belly). No driving for 24 hours (because of the anesthesia (medicine) used during the test). You may shower. Do not sign any important legal documents or operate any machinery for 24 hours (because of the anesthesia used during the test). NUTRITION Drink plenty of fluids. You may resume your normal diet as instructed by your doctor. Begin with a light meal and progress to your normal diet. Heavy or fried foods are harder to digest and may make you feel nauseated (sick to your stomach). Avoid alcoholic beverages for 24 hours or as instructed. MEDICATIONS You may resume your normal medications unless your doctor tells you otherwise. WHAT YOU CAN EXPECT TODAY Some feelings of bloating in the abdomen. Passage of more gas than usual. Spotting of blood in your stool or on the toilet paper. IF YOU HAD POLYPS REMOVED DURING THE COLONOSCOPY: No aspirin products for 7 days or as instructed. No alcohol for 7 days or as instructed. Eat a soft diet for the next 24 hours. FOLLOW-UP Your doctor will discuss the results of your test with you. SEEK IMMEDIATE MEDICAL ATTENTION IF: There is more than a spotting of blood in your stool. There is abdominal distention (your abdomen is swollen). There is vomiting. You have a temperature over 101.5 F. There is abdominal pain or discomfort that is severe or gets worse throughout the day. Common Emergency Awareness Tips IS IT A STROKE? Act FAST and Check for these signs: FACE Does the face look uneven? ARM Does one arm drift down? SPEECH Does their speech sound strange? TIME Call at any sign of stroke Heart Attack Signs Chest discomfort: Most heart attacks involve discomfort in the center of the chest and lasts more than a few minutes, or goes away and comes back. It can feel like uncomfortable pressure, squeezing, fullness or pain. Discomfort in upper body: Symptoms can include pain or discomfort in one or both arms, back, neck, jaw or stomach. Shortness of breath: With or without discomfort. Other signs: Breaking out in a cold sweat, nausea, or lightheaded. Remember, MINUTES DO MATTER. If you experience any of these heart attack warning signs, call to get immediate medical attention! Patient Survey You may receive a survey (more content not included)... [facility] Comment on above: Result Comment: Elec tronically Signed By: Irene MA, Sylvia\.br\Date and Time Signed: 06/13/24 10:04 EDT Inpatient Patient Summaryon 06-13-2024 Inpatient Patient Summary Inpatient Patient Summary [place] [id number] [facility] Clinical Discharge Instructions PERSON INFORMATION Name: GHADACARLIN KRISTOPHER Zavala PHYSICIANS Admitting Physician: Keith GUADARRAMA MD Attending Physician: Keith GUADARRAMA MD PCP: Iam Dai MD Discharge Diagnosis: Personal history of colonic polyps Comment: PATIENT EDUCATION INFORMATION Instructions: Medication Leaflets: Follow up: With: Address: When: Keith GUADARRAMA [address] [facility], [address], [place] [address] [facility] (4) , only if needed MEDICATION LIST Comment: Normal [facility] Main OR PACU I Recordon Main OR PACU I Record Main OR PACU I Record PACU Phase I Document Type FT Summary Primary Physician: Keith GUADARRAMA MD Finalized Date/Time: 06/13/24 10:30:51 Pt. Name: KRISTOPHER ARCE/Sex: 1970 Male Med Rec #: [id number] Physician: Keith GUADARRAMA MD Financial #: [id number] Pt. Type: O Room/Bed: / Admit/Disch: 06/13/24 08:07:39 - Institution: Case Times PACU I FT Pre-Care Text: Identifies barriers to communication and implements measures to provide psychological support Develops individualized plan of care, and ensures continuity of care Maintains patient's dignity and privacy, and maintains patient confidentiality Identifies and reports philosophical, cultural, and spiritual beliefs and values Identifies individual values and wishes concerning care Implements aseptic technique, and administers prescribed antibiotic therapy and immunizing agents as ordered Evaluates postoperative tissue perfusion Implements thermoregulation measures, and monitors body temperature Evaluates postoperative respiratory status Evaluates postoperative cardiac status Evaluates postoperative neurological status Assesses pain control, collaborated in initiating patient-controlled analgesia and implements alternative methods of pain control Verifies allergies, administers prescribed medications and solutions, evaluates response to medications Entry 1 In PACU I 06/13/24 09:50:00 Discharge from PACU 06/13/24 10:20:00 I Outcomes Met? Yes Last Modified By: Sylvia Bonilla RN 06/13/24 10:30:36 Post-Care Text: The patient demonstrates knowledge of the expected response to the operative or invasive procedure The patient's care is consistent with the individualized perioperative plan of care The patient's right to privacy is maintained The patient's value system, lifestyle, ethnicity, and culture are considered, respected, and incorporated into the perioperative plan of care The patient participates in decisions affecting his or her perioperative plan of care The patient is free from signs and symptoms of infection The patient has wound/tissue perfusion consistent with or improved from baseline levels established preoperatively The patient is at or returning to normothermia at the conclusion of the immediate postoperative period The patient's respiratory function is consistent with or improved from baseline levels established preoperatively The patient's cardiovascular status is consistent with or improved from baseline levels established preoperatively The patient's cardiovascular status is consistent with or improved from baseline levels established preoperatively The patient demonstrates and/or reports adequate pain control throughout the perioperative period The patient received appropriate medication(s), safely administered during the perioperative period Acuity Level PACU I FT Entry 1 Start Time 06/13/24 09:50:00 Stop Time 06/13/24 10:20:00 Acuity Level Acuity Level I Last Modified By: Sylvia Bonilla RN 06/13/24 10:30:47 Finalized By: Sylvia Bonilla RN Document Signatures Signed By: Sylvia Bonilla RN 06/13/24 10:30 Normal [facility] Main OR Preoperative Recordo n 06-13-2024 Main OR Preoperative Record Main OR Preoperative Record Holding Area Document Type FT Summary Primary Physician: Keith GUADARRAMA MD Finalized Date/Time: 06/13/24 08:53:59 Pt. Name: DINAHKRISTOPHERO.B./Sex: 1970 Male Med Rec #: [id number] Physician: Keith GUADARRAMA MD Financial #: [id number] Pt. Type: O Room/Bed: / Admit/Disch: 06/13/24 08:07:39 - Institution: Case Times Holding FT Pre-Care Text: Verifies consent for planned procedure, identifies individual values and wishes concerning care, includes family members in perioperative teaching Secures patient's records' belongings, and valuables, maintains patient's dignity and privacy, and maintains patient confidentiality Entry 1 In Holding 06/13/24 08:40:00 Outcomes Met? Yes Last Modified By: Yuliana Rubin I 06/13/24 08:52:41 Post-Care Text: The patient participates in decisions affecting his or her perioperative plan of care The patient's right to privacy is maintained Surgery Checklist FT Entry 1 Patient Birthday, ID Band Procedure History and Physical, Identification: Check, Patient Verification: Surgical Consent, With Participation Patient NPO after Midnight: No Date/Time: 06/13/24 03:30:00 Results Reviewed n/a Personal Items clothes left with family Comments: Comment: Limitations: n/a Complaints of Pain: No Pain Comment: n/a Operative Site n/a Marking: Marked By: n/a Location: n/a Availability Equipment Verified: Does Patient Smoke No Patient states Yes Comment - Adult Anastasia postop adult Supervision supervision available Case Cancelled in No Holding Area see comments below for reason Last Modified By: Yuliana Rubin I 06/13/24 08:53:55 Finalized By: Yuliana Rubin I Document Signatures Signed By: Yuliana Rubin I 06/13/24 08:53 Normal [facility] Outpatient Surgery Discharge Instructionon 06-13-2024 Outpatient Surgery Discharge Instruction Outpatient Surgery Discharge Instruction [address] [address] Patient Discharge Instructions PERSON INFORMATION Name: PAULINANIYAKRISTOPHER Date of : 1970 Current Date: 06/13/2024 09:47:48 PHYSICIANS Admitting Physician: ARETHA KAISER, Keith Merritt Discharge Diagnosis: Personal history of colonic polyps KRISTOPHER ARCE has been given the following list of follow-up instructions, prescriptions, and patient education materials: PATIENT FOLLOW-UP INFORMATION Diet: Regular Discharge Activity: Resume normal activities in 24 hours, Arrange for a responsible adult supervision for 24 hours Discharge Restrictions: No driving for 24 hrs, Do not operate machinery or tools, Do not make important decisions for 24 hours, Do not drink alcoholic beverages for 24 hours Call Your Doctor For: Persistent or heavy bleeding, Temperature above 101.5 degrees, Redness, swelling, or pus at operative site, Severe pain at the operative site, Persistent vomiting IF UNABLE TO CONTACT YOUR PHYSICIAN AND YOU FEEL IT IS AN EMERGENCY, GO TO THE NEAREST EMERGENCY ROOM OR CALL 911 I, KRISTOPHER ARCE, have received the attached patient education materials/instructions and have verbalized understanding: May we do a follow up call? Yes No I was present when discharge instructions were given Patient Signature Date Clinican/Nurse Signature ___ Date Follow up: With: Address: When: Keith GUADARRAMA [address] [place] [address], [address], [place] [id number] [facility] (1) , only if needed Pharmacy Information: You may receive a survey from [employer] asking you to rate your care experience. Your feedback is important and will help us understand what we do well and how we can improve the quality of care we provide to you, your loved ones and our community. It?s an honor to serve you. Thank you for choosing [facility] HERE ARE THE MEDICATION CHANGES THAT OCCURRED DURING YOUR HOSPITAL STAY PATIENT EDUCATION INFORMATION Instructions: Medication Leaflets: Normal [facility] XR ankle RT min 3V*on 2022 XR ankle RT min 3V* [facility] [employer] Other XR ankle RT min 3V* [facility] [employer] Other XR ankle RT min 3V* [address] [place] [address] [employer] Other XR ankle RT min 3V* JAYLENE Silveira [address] [place] [employer] Other XR ankle RT min 3V* XRay Report [facility] [employer] Other XR ankle RT min 3V* Signed [employer] Other XR ankle RT min 3V* Patient: Yariel Arce MR#: [id number] [place] [employer] Other XR ankle RT min 3V* [id number] [employer] Other XR ankle RT min 3V* : 1970 Acct:[id number] [employer] Other XR ankle RT min 3V* Age/Sex: 52 / M ADM Date: 10/28/22 [employer] Other XR ankle RT min 3V* Loc: XDUCLY Room: Type: [facility] [employer] Other XR ankle RT min 3V* Attending Dr: Lois Waters ABLE SEAMAN-C [employer] Other XR ankle RT min 3V* Copies to: JESSICA Ambrocio [employer] Other XR ankle RT min 3V* Ordering Provider: JESSICA Ambrocio [employer] Other XR ankle RT min 3V* Date of Service: 10/28/22 [employer] Other XR ankle RT min 3V* XR/XR ankle RT min 3V*: Acute right ankle pain [employer] Other XR ankle RT min 3V* RIGHT ANKLE - 3 views [employer] Other XR ankle RT min 3V* CLINICAL HISTORY: Right ankle injury 2 days ago now with swelling [employer] Other XR ankle RT min 3V* COMPARISON: None [employer] Other XR ankle RT min 3V* FINDINGS: [employer] Other XR ankle RT min 3V* Soft tissue swelling . No acute bony process. Ankle mortise appears intact. Mild ankle spurring. [employer] Other XR ankle RT min 3V* XR/XR ankle RT min 3V* [employer] Other XR ankle RT min 3V* IMPRESSION: Nort [employer] Other XR ankle RT min 3V* SOFT TISSUE SWELLING WITHOUT ACUTE BONY PROCESS. [employer] Other XR ankle RT min 3V* Impression dictated by: Lopez Silver Jr., D.OJacques10/28/2022 10:51 AM [employer] Other XR ankle RT min 3V* Dictation Location: [place] [address] [employer] Other XR ankle RT min 3V* Transcribed By: CUAUHTEMOC 10/28/22 1051 [employer] Other XR ankle RT min 3V* Dictated By: Lopez Silver Jr, DO 10/28/[address] [facility] [employer] Other XR ankle RT min 3V* Signed By: [employer] Other XR ankle RT min 3V* 10/28/22 1051 No rth [employer] Other XR ankle RT min 3V* [facility] Main [place] [address] [place] [address] XRay Report Signed Patient: Kristopher Arce MR#: [id number] : 1970 Acct:[id number] Age/Sex: 52 / M ADM Date: 10/28/22 Loc: [facility] Room: Type: [facility] Attending Dr: Lois LOPEZ Copies to: JESSICA Ambrocio Ordering Provider: JESSICA Ambrocio Date of Service: 10/28/22 XR/XR ankle RT min 3V*: Acute right ankle pain RIGHT ANKLE - 3 views CLINICAL HISTORY: Right ankle injury 2 days ago now with swelling COMPARISON: None FINDINGS: Soft tissue swelling. No acute bony process. Ankle mortise appears intact. Mild ankle spurring. XR/XR ankle RT min 3V* IMPRESSION: SOFT TISSUE SWELLING WITHOUT ACUTE BONY PROCESS. Impression dictated by: Lopez Silver Jr., D.OJacques10/28/2022 10:51 AM Dictation Location: [place] [address] Transcribed By: [facility] 10/28/22 1051 Dictated By: Lopez Silver Jr, DO 10/28/22 1050 Signed By: 10/28/22 1051 Normal [facility] Vital Signs Date Time Vital Sign Value Performing Clinician Facility 06-13-2024 10:15-0400 Blood Pressure Location Keith GUADARRAMA [facility] 06-13-2024 10:150400 Diastolic blood pressure 78 mm[Hg] Keith GUADARRAMA [facility] 06-13-2024 10:15-0400 Heart rate 64 /min Keith NILL [facility] 06-13-2024 10:15-0400 Mean blood pressure 90 mm[Hg] Keith NILL [facility] 06-13-2024 10:15-0400 Respiratory rate 23 /min Keith NILL [facility] 06-13-2024 10:15-0400 SaO2% (BldA) [Mass fraction] 97 % Keith NILL [facility] 06-13-2024 10:15-0400 Systolic blood pressure 113 mm[Hg] Keith NILL [facility] 06-13-2024 10:05-0400 Blood Pressure Location Keith NILL [facility] 06-13-2024 10:05-0400 Diastolic blood pressure 74 mm[Hg] Keith NILL [facility] 06-13-2024 10:05-0400 Heart rate 64 /min Keith NILL [facility] 06-13-2024 10:05-0400 Mean blood pressure 85 mm[Hg] Keith NILL [facility] 06-13-2024 10:05-0400 Respiratory rate 12 /min Keith NILL [facility] 06-13-2024 10:05-0400 SaO2% (BldA) [Mass fraction] 98 % Keith NILL [facility] 06-13-2024 10:05-0400 Systolic blood pressure 106 mm[Hg] Keith NILL [facility] 06-13-2024 10:00-0400 Diastolic blood pressure 77 mm[Hg] Keith NILL [facility] 06-13-2024 10:00-0400 Heart rate 69 /min Keith NILL [facility] 06-13-2024 10:00-0400 Mean blood pressure 88 mm[Hg] Keith NILL [facility] 06-13-2024 10:00-0400 Respiratory rate 24 /min Keith NILL [facility] 06-13-2024 10:00-0400 SaO2% (BldA) [Mass fraction] 96 % Keith NILL [facility] 06-13-2024 10:00-0400 Systolic blood pressure 111 mm[Hg] Keith NILL [facility] 06-13-2024 09:50-0400 Body temperature 97.7 [degF] Keith NILL [facility] 06-13-2024 09:45-0400 Respiratory rate 22 /min Keith NILL [facility] 06-13-2024 09:40-0400 Respiratory rate 22 /min Keith NILL [facility] 06-13-2024 09:35-0400 Respiratory rate 22 /min Keith NILL [facility] 06-13-2024 08:50-0400 Body temperature 97.88 [degF] Keith NILL [facility] 11-26-2023 08:40-0500 Blood Pressure Location Keith NILL [facility] 11-26-2023 08:40-0500 Diastolic blood pressure 73 mm[Hg] Keith NILL [facility] 11-26-2023 08:40-0500 Heart rate 62 /min Keith NILL [facility] 11-26-2023 08:40-0500 Mean blood pressure 89 mm[Hg] Keith NILL [facility] 11-26-2023 08:40-0500 Respiratory rate 16 /min Keith NILL [facility] 11-26-2023 08:40-0500 SaO2% (BldA) [Mass fraction] 98 % Keith NILL [facility] 11-26-2023 08:40-0500 Systolic blood pressure 120 mm[Hg] Keith NILL [facility] 11-26-2023 08:30-0500 Blood Pressure Location Keith NILL [facility] 11-26-2023 08:30-0500 Diastolic blood pressure 79 mm[Hg] Keith NILL [facility] 11-26-2023 08:30-0500 Heart rate 68 /min Keith NILL [facility] 11-26-2023 08:30-0500 Mean blood pressure 91 mm[Hg] Keith NILL [facility] 11-26-2023 08:30-0500 Respiratory rate 20 /min Keith NILL [facility] 11-26-2023 08:30-0500 SaO2% (BldA) [Mass fraction] 95 % Keith NILL [facility] 11-26-2023 08:30-0500 Systolic blood pressure 114 mm[Hg] Keith NILL [facility] 11-26-2023 08:25-0500 Blood Pressure Location Keith NILL [facility] 11-26-2023 08:25-0500 Diastolic blood pressure 57 mm[Hg] Keith NILL [facility] 11-26-2023 08:25-0500 Heart rate 66 /min Keith NILL [facility] 11-26-2023 08:25-0500 Mean blood pressure 73 mm[Hg] Keith NILL [facility] 11-26-2023 08:25-0500 Respiratory rate 27 /min Keith NILL [facility] 11-26-2023 08:25-0500 SaO2% (BldA) [Mass fraction] 95 % Keith NILL [facility] 11-26-2023 08:25-0500 Systolic blood pressure 104 mm[Hg] Keith NILL [facility] 11-26-2023 08:14-0500 Body temperature 97.34 [degF] Keith NILL [facility] 11-26-2023 08:10-0500 Respiratory rate 28 /min Keith NILL [facility] 11-26-2023 08:05-0500 Respiratory rate 22 /min Keith NILL [facility] 11-26-2023 07:12-0500 Body temperature 98.06 [degF] Keith NILL [facility] 10-10-2023 15:25-0500 Blood Pressure Location Keith NILL [facility] [place] 10-10-2023 15:25-0500 Diastolic blood pressure 82 mm[Hg] Keith NILL [facility] [place] 10-10-2023 15:25-0500 Heart rate 80 /min Keith NILL [facility] [place] 10-10-2023 15:25-0500 Respiratory rate 16 /min Keith GUADARRAMA [facility] [place] 10-10-2023 15:25-0500 Systolic blood pressure 122 mm[Hg] Keith GUADARRAMA [facility] [place] 10-28-2022 11:20-0500 Body height 180.34 cm Lois Evelin Other [employer] Other 10-28-2022 11:20-0500 Body mass index (BMI) [Ratio] 32.77 kg/m2 Lois Evelin Other [employer] Other 10-28-2022 11:20-0500 Body temperature 97.1 [degF] Lois Evelin Other [employer] Other 10-28-2022 11:20-0500 Body weight 106.6 kg Lois Evelin Other [employer] Other 10-28-2022 11:20-0500 Diastolic blood pressure 85 mm[Hg] Lois Evelin Other [employer] Other 10-28-2022 11:20-0500 Respiratory rate 18 /min Lois Evelin Other [employer] Other 10-28-2022 11:20-0500 SaO2% (BldA) [Mass fraction] 97 % Lois Evelin Other [employer] Other 10-28-2022 11:20-0500 Systolic blood pressure 120 mm[Hg] Lois Evelin Other [employer] Other Encounters Encounter Date Encounter Type Care Provider Facility Start: 06-10-2025 End: 06-10-2025 ambulatory Keith GUADARRAMA Facility:[facility] Start: 06-10-2025 End: 06-10-2025 Patient encounter procedure Keith Shaina NILL [facility] [place] Start: 06-02-2025 ambulatory Keith NILL Facility: [facility] Start: 06-13-2024 End: 06-13-2024 ambulatory Keith R NILL Facility:[facility] [place] Start: 06-13-2024 End: 06-13-2024 Patient encounter procedure Keith R NILL [facility] Start: 12-07-2023 End: 12-07-2023 Patient encounter procedure Keith R NILL [facility] [place] Start: 11-26-2023 End: 11-26-2023 Patient encounter procedure Keith Merritt NILL [facility] Start: 10-10-2023 End: 10-10-2023 Patient encounter procedure Keith Merritt NILL [facility] [place] Start: 10-28-2022 Office outpatient vi sit 15 minutes Lois Waters [facility] Start: 10-28-2022 End: 10-28-2022 ambulatory Lois Waters Facility:[facility] Start: 10-28-2022 End: 10-28-2022 ambulatory MD Jordy Valerio Work Phone: [facility] Work Phone: Start: 10-28-2022 End: 10-28-2022 Patient encounter procedure MD Jordy Valerio Work Phone: [facility] Work Phone: Start: 08-31-2021 End: 09-01-[address] IAM DAI Facility:[facility] Procedures Date Procedure Procedure Detail Performing Clinician Start: 06-13-2024 Flexible fiberoptic sigmoidoscopy Keith GUADARRAMA Start: 11-26-2023 Colonoscopy Keith PETERS MICHAEL Start: 10-28-2022 X-ray of right ankle MD Jordy Valerio Work Phone: History of operative procedure on lumbar spinal structure Keith ARETHA Vasectomy Keith GODOYJonathon Immunizations Immunization Date Immunization Notes Care Provider Fa cility 09-12-2021 SARS-CoV-2 (COVID-19 ) Ad26 vaccine, recombinant Keith GUADARRAMA [facility] [place] Comment on above: Result Comment: 2022: TPV40 12-12-2015 tetanus toxoid, reduced diphtheria toxoid, and acellular pertussis vaccine, adsorbed Lois Evelin Other [employer] Other NEGATED: Highlighted row has not occurred!10-10-2023 influenza virus vaccine, unspecified formulation Keith GODOYJonathon [facility] [place] Payers Date Payer Category Payer Private Health Insurance [id number] 2024 Unknown [id number] 2022 [facility]-pay 2007 [id number] 1970 Unknown [id number] 1970 Unknown [id number] 1972 Unknown [id number] [id number] 1959 Unknown [id number] Unknown [id number] Unknown [id number] [id number] [id number] Social History Date Type Detail Facility Tobacco smoking stat [facility] Unknown if ever smoked [facility] Work Phone: Start: 1970 Sex Assigned At Male [facility] Sex Assigned At [facility] Start: 10-10-2023 End: 06-10-2025 Tobacco smoking status Never smoked tobacco (finding) [facility] [place] Tobacco smoking status Never [facility] [place] Sexual Orientation [facility] [place] Start: 01-19-2010 Sex Male (finding) [facility] Medical Equipment Procedure Code Equipment Code Equipment Origin al Text Equipment Identifier Dates Unknown Unknown 11/26/23 Non Biological Unknown FDA Start: 11-26-2023 FDA Start: 11-26-2023 Unknown Unknown 11/26/23 Non Biological Unknown FDA Start: 11-26-2023 FDA Start: 11-26-2023 Unknown Unknown 11/26/23 Non Biological Unknown FDA Start: 11-26-2023 FDA Start: 11-26-2023 Unknown Unknown 11/26/23 Non Biological Unknown FDA Start: 11-26-2023 FDA Start: 11-26-2023 Functional Status Date Assessment Result Facility 06-13-2024 Functional Status N/A [facility] 11-26-2023 Functional Status N/A [facility] 10-10-2023 Functional Status N/A [facility] Clinical Notes 08-31-2021 to 06-10-2025 Note Date & Type Note Facility 06-10-2025 Note General Surgery Offi ce/Clinic Note Chief Complaint consultation for colonoscopy HPI Staff 54 year old male presents on consultation for surveillance colonoscopy. Last colonoscopy completed 06/2024- normal. Previous colonoscopy completed 11/2023 with large sigmoid tubulovillous adenoma removed in piecemeal fashion. History of Present Illness 54 yo male with h/o GERD, lumbar radiculopathy, presents for surveillance colonoscopy; patient had 2.5 cm sessile distal sigmoid tubulovillous adenoma removed 11/2023 in piecemeal fashion; flexible sigmoidoscopy 06/2024 with no recurrent polyp; denies change in bms or blood in stools, no abd complaints; no abd surgery; no asa or NSAID use; no tobacco use; no fmhx of GI malignancy or IBD. Review of Systems PHQ Score Initial Depression Screen Score: 0 SCORE ROS - Provider Constitutional: no fever, no sweats, no weight loss. Eyes: no glasses, no blurred vision, no visual loss. ENMT: no dentures, no hoarseness, no swallowing difficulties, no hearing loss, no ear infection(s), no nose bleeds. Cardiovascular: normal blood pressure, no chest pain, regular heartbeat, no heart murmur. Respiratory: no shortness of breath, no cough, no asthma, no wheezing. Gastrointestinal: no nausea, no vomiting, no diarrhea, no constipation, no blood in stool, no change in bowel habits, no abdominal pain, no hepatitis. Genitourinary: no kidney stones, no urine infection, no dysuria. Musculoskeletal: no pain, no weakness. Skin: no changing moles, no rash, no skin lumps. Neurologic: no seizures, no epilepsy, no headache. Psychiatric: no emotional or psychiatric problem. Heme/Lymph: no bleeding problems, no anemia, no blood clots, no transfusions. Allergy/Immunologic: no swollen lymph nodes/glands, no IV drug abuse. Other: Additional ROS info: Except as noted in the above Review of Systems and in the History of Present Illness, all other systems have been reviewed and are negative or noncontributory. Physical Exam Vitals & Measurements HR: 72(Peripheral) RR: 16 BP: 128/80 HT: 71 in HT: 180.3 cm WT: 114.3 kg WT: 251.988 lb BMI: 35.16 Respiratory: lungs CTA, respirations non labored. Cardiovascular: regular rate and rhythm, no murmur, no pedal edema or varicosities. Gastrointestinal: obese, soft, non distended, no tenderness, no masses, no palpable hernias, diastasis recti no, no hepatosplenomegaly; normal bs Musculoskeletal: normal gait, digits and nails without infection, nodes, cyanosis, clubbing. Skin: no rashes, no lesions, no ulcers, no subcutaneous nodules, induration. Psychiatric/Neuro: oriented to time, place, person, judgement normal, affect appropriate for age, insight intact, no focal deficits. Tests: review of old records completed , Discussed surgical options, risks, and possible complications with patient. Assessment/Plan 1. Personal history of adenomatous and serrated colon polyps (Z86.0101: Personal history of adenomatous and serrated colon polyps) plan surveillance colonoscopy under anesthesia, informed consent obtained. Follow-up No qualifying data available Problem List/Past Medical History Ongoing BMI 34.0-34.9,adult Eosinophilic esophagitis GERD (gastroesophageal reflux disease) Lumbar radiculopathy Obesity Personal history of adenomatous and serrated colon polyps Screening for malignant neoplasm of colon Seasonal allergic rhinitis Tubulovillous adenoma of colon Historical No qualifying data Procedure/Surgical History Flexible sigmoidoscopy (06/13/2024), Colonoscopy (11/26/2023), History of lumbar spine surgery, Vasectomy. Medications No active medications Allergies No Known Allergies Social History Alcohol Beer, 1-2 times per week, 10/10/2023 Substance Abuse - Denies Substance Abuse, 08/03/2021 Tobacco - Denies Tobacco Use, 08/03/2021 Never (less than 100 in lifetime) Tobacco Use:. Never Smokeless Tobacco Use:., 06/10/2025 Family History Diabetes mellitus type 2: Father. Immunizations Vaccine Date Status Comments influenza virus vaccine, inactivated - Not Given Patient Refuses SARS-CoV-2 (COVID-19) Ad26 vaccine 09/12/2021 Recorded 2023-10-04: [id number] [facility] Comment on above: Result Comment: Elec tronically Signed By: Keith GUADARRAMA MD\.br\Date and Time Signed: 06/10/25 16:28 EDT 06-13-2024 Note Colonoscopy Procedur e Report Patient: KRISTOPHER ARCE Age: 53 years Sex: Male : 1970 Associated Diagnoses: None Author: Keith GUADARRAMA MD Pre-Procedure Procedure Date 06/13/2024 10:15:00 . Procedure Type: Flexible sigmoidoscopy. Procedure provider Performed by Keith GUADARRAMA MD Referred by Iam Dai MD. Current history and physical Documented on chart. Colorectal neoplasm risk assessment Average risk. Informed Consent After discussing the rationale, risks and benefits, and alternatives to this procedure, the patient provided signed consent for the procedure. Pre-procedure diagnosis: Surveillance: large tubulovillous adenoma removed in a piecemeal fashion 6 months ago. ASA Classification: Class II. . Monitoring: See anesthesia record. . Procedure The procedure was performed in the hospital. See anesthesia record for sedation given during procedure. Rectal exam was performed and was normal. The patient was positioned starting in the left lateral decubitus position. Endoscope type used was an adult-size. The endoscope was lubricated then introduced through the anus. The scope was advanced to the transverse colon verified by landmarks. No difficulties encountered during the procedure. The bowel preparation quality was good and was adequate (see polyps greater than or equal to 6 millimeters). The patient tolerated the procedure well. Findings The bowel was normal throughout the extent examined. Images Procedure images: rectal veins . Post-Procedure Complications: none. Estimated blood loss: none. Specimens: none. Devices/ implants: none left in place. Impression and Plan Diagnosis: Personal history of colonic polyps ([id number] Z86.010, Discharge, Medical). Course: Progressing as expected. Recommendations: Repeat colonoscopy:: In 1 year. Follow-up:: if problems/questions. Diet:: Regular diet. Medication resumption:: Continue current medications. Return to activities:: After 24 hours. Education and Follow-up: Counseled: Family. [facility] Comment on above: Other Comment: Azeb fitzgerald Attachment - attachment storage system not supported [id number] Can be viewed in source system 06-13-2024 Evaluation + Plan note Extrac debra from: Title:ANES Post-operative Note---General Author: Jon Baca MD. Date:06/13/24 Plan Transfer/Discharge: Transfer/Discharge Discharge when meets criteria ( To home ). Extracted from: Title:ANES Pre-operative Note 2022 Author:Jon Ngo. Date:06/13/24 Plan [place] [employer] (ASA) physical status classification: Class II. Anesthetic Preoperative Plan: Anesthesia General. [facility] 09-06-2024 NoteProgress Note-Physician Patient: KRISTOPHER ARCE Age: 53 years Sex: Male : 1970 Associated Diagnoses: None Author: Jon Baca MD Postoperative Information Postoperative disposition: Postoperative disposition: To PACU. Optimetrix number: Optimetrix number [id number]. Anesthetic utilized: General. Health Status Allergies: Allergic Reactions (Selected) No Known Allergies Physical Examination Vital Signs 06/13/2024 10:15 EDT Heart Rate Monitored 64 bpm Respiratory Rate Monitored 23 br/min Systolic Blood Pressure 113 mmHg Diastolic Blood Pressure 78 mmHg Blood Pressure Location Left arm Mean Arterial Pressure, Cuff 90 mmHg SpO2 97 % 06/13/2024 10:05 EDT Heart Rate Monitored 64 bpm Respiratory Rate Monitored 12 br/min Systolic Blood Pressure 106 mmHg Diastolic Blood Pressure 74 mmHg Blood Pressure Location Left arm Mean Arterial Pressure, Cuff 85 mmHg SpO2 98 % 06/13/2024 10:00 EDT Heart Rate Monitored 69 bpm Respiratory Rate Monitored 24 br/min Systolic Blood Pressure 111 mmHg Diastolic Blood Pressure 77 mmHg Blood Pressure Location Left arm Mean Arterial Pressure, Cuff 88 mmHg SpO2 96 % 06/13/2024 9:55 EDT Heart Rate Monitored 74 bpm Respiratory Rate Monitored 26 br/min Systolic Blood Pressure 107 mmHg Diastolic Blood Pressure 79 mmHg Blood Pressure Location Left arm Mean Arterial Pressure, Cuff 88 mmHg SpO2 95 % 06/13/2024 9:50 EDT Temperature Temporal Artery 36.5 DegC Heart Rate Monitored 77 bpm Respiratory Rate Monitored 20 br/min Systolic Blood Pressure 101 mmHg Diastolic Blood Pressure 76 mmHg Blood Pressure Location Left arm Mean Arterial Pressure, Cuff 84 mmHg SpO2 94 % Pain Assessment: Controlled. General: Awake, Appropriate. Respiratory: Adequate air exchange. Cardiovascular: Stable. Neurological Assessment Anesthetic outcome No anesthetic complications noted. Adequate pain relief. Review / Management Condition: Stable. Plan Transfer/Discharge: Transfer/Discharge Discharge when meets criteria ( To home ).[facility] Comment: Electronically Signed By: Jon Baca MD\.br\Date and Time Signed: 06/13/24 12:44 EDT 06-13-2024 Hospital Discharge instructions Patient Education 06/13/2024 10:03:29 Colonoscopy, Care After Surgery [place] (CUSTOM) Colonoscopy Care After Surgery Please read the instructions outlined below and refer to this sheet in the next few weeks. These discharge instructions provide you with general information on caring for yourself after you leave thehospital. Your doctor may also give you specific instructions. While your treatment has been planned according to the most current medical practices available, unavoidable complications occasionally occur. If you have any problems or questions after discharge, please call your doctor. ACTIVITY You may resume your regular activity, but move at a slower pace for the next 24 hours. Take frequent rest periods for the next 24 hours. Walking will help get rid of the air and reduce the bloated feeling in your abdomen (belly). No driving for 24 hours (because of the anesthesia (medicine) used during the test). You may shower. Do not sign any important legal documents or operate any machinery for 24 hours (because of the anesthesia used during the test). NUTRITION Drink plenty of fluids. You may resume your normal diet as instructed by your doctor. Begin with a light meal and progress to your normal diet. Heavy or fried foods are harder to digestand may make you feel nauseated (sick to your stomach). Avoid alcoholic beverages for 24 hours or as instructed. MEDICATIONS You may resume your normal medications unless your doctor tells you otherwise. WHAT YOU CAN EXPECT TODAY Some feelings of bloating in the abdomen. Passage of more gas than usual. Spotting of blood in your stool or on the toilet paper. IF YOU HAD POLYPS REMOVED DURING THE COLONOSCOPY: No aspirin products for 7 days or as instructed. No alcohol for 7 days or as instructed. Eat a soft diet for the next 24 hours. FOLLOW-UP Your doctor will discuss the results of your test with you. SEEK IMMEDIATE MEDICAL ATTENTION IF: There is more than a spotting of blood in your stool. There is abdominal distention (your abdomen is swollen). There is vomiting. You have a temperature over 101.5 F. There is abdominal pain or discomfort that is severe or gets worse throughout the day. Follow Up Care 05/09/2024 11:00:59 With:Keith GUADARRAMA Address: [address], [address] [place] [phone]- Business (1) When: only if needed [facility] 09-06-2024 NotePatient Education - Text Colonoscopy Care After Surgery Please read the instructions outlined below and refer to this sheet in the next few weeks. These discharge instructions provide you with general information on [facility] Your doctor may also give you specific instructions. While your treatment has been planned according to the most current medical practices available, unavoidable complications occasionally occur. If you have any problems or questions after discharge, please call your doctor. ACTIVITY You may resume your regular activity, but move at a slower pace for the next 24 hours. Take frequent rest periods for the next 24 hours. Walking will help get rid of the air and reduce the bloated feeling in your abdomen (belly). No driving for 24 hours (because of the anesthesia (medicine) used during the test). You may shower. Do not sign any important legal documents or operate any machinery for 24 hours (because of the anesthesia used during the test). NUTRITION Drink plenty of fluids. You may resume your normal diet as instructed by your doctor. Begin with a light meal and progress to your normal diet. Heavy or fried foods are harder to digestand may make you feel nauseated (sick to your stomach). Avoid alcoholic beverages for 24 hours or as instructed. MEDICATIONS You may resume your normal medications unless your doctor tells you otherwise. WHAT YOU CAN EXPECT TODAY Some feelings of bloating in the abdomen. Passage of more gas than usual. Spotting of blood in your stool or on the toilet paper. IF YOU HAD POLYPS REMOVED DURING THE COLONOSCOPY: No aspirin products for 7 days or as instructed. No alcohol for 7 days or as instructed. Eat a soft diet for the next 24 hours. FOLLOW-UP Your doctor will discuss the results of your test with you. SEEK IMMEDIATE MEDICAL ATTENTION IF: There is more than a spotting of blood in your stool. There is abdominal distention (your abdomen is swollen). There is vomiting. You have a temperature over 101.5 F. There is abdominal pain or discomfort that is severe or gets worse throughout the day.[facility]09-06-2024 NoteProgress Note-Physician Patient: KRISTOPHER ARCE Age: 53 years Sex: Male : 1970 Associated Diagnoses: None Author: Jon Baca MD Preoperative Information Anesthesia Preop Info: Time patient last ate or drank 06/13/2024 00:00:00. Anesthesia history: Patient history: None. Family history+: None. Informed consent: Signed by patient. Re-evaluation prior to induction: Initial evaluation reviewed: No significant change. Review of Systems Eye Ear/Nose/Mouth/Throat Respiratory: No shortness of breath, No cough. Cardiovascular: Negative, No chest pain. Musculoskeletal Neurologic Health Status Allergies: Allergic Reactions (Selected) No Known Allergies, Allergies (1) Active Severity Reaction No Known Allergies None Documented Current medications: (Selected) Inpatient Medications Ordered Lactated Ringers IV Beckie 1000 mL 1,000 mL: 1,000 mL, IV, 100 mL/hr, Routine, Start date 06/13/24 9:19:00 EDT, 10 hour(s), Total volume (mL): 1,000 Sodium Chloride 0.9% IV Beckie 1000 mL 1,000 mL: 1,000 mL, IV, 20 mL/hr, Routine, Start date 06/13/24 8:56:00 EDT, 50 hour(s), Total volume (mL): 1,000, No qualifying data available , Medications (2) Active Scheduled: (0) Continuous: (2) Lactated Ringers 1,000 mL 1,000 mL, IV, 100 mL/hr Sodium Chloride 0.9% 1,000 mL 1,000 mL, IV, 20 mL/hr PRN: (0) Problem list: All Problems BMI 34.0-34.9,adult / SNOMED CT 154537115 / Confirmed Eosinophilic esophagitis / SNOMED CT 047462644 / Confirmed GERD (gastroesophageal reflux disease) / SNOMED CT 413996563 / Confirmed Lumbar radiculopathy / SNOMED CT 557096867 / Confirmed Obesity / SNOMED CT [id number] / Possible Obesity / SNOMED CT 9400587755 / Confirmed Screening for malignant neoplasm of colon / SNOMED CT 075986593 / Confirmed Seasonal allergic rhinitis / SNOMED CT 900205102 / Confirmed Tubulovillous adenoma of colon / SNOMED CT 1708327990 / Confirmed, Active Problems (9) BMI 34.0-34.9,adult Eosinophilic esophagitis GERD (gastroesophageal reflux disease) Lumbar radiculopathy Obesity Obesity Screening for malignant neoplasm of colon Seasonal allergic rhinitis Tubulovillous adenoma of colon Histories Past Medical History: No active or resolved past medical history items have been selected or recorded. Family History: Diabetes mellitus type 2 Father Procedure history: Colonoscopy ([id number]) on 11/26/2023 at 53 Years. Vasectomy (13174465). History of lumbar spine surgery ([id number]). Social History Social & Psychosocial Habits Alcohol 12/07/2023 Type: Beer Frequency: 1-2 times per week Substance Abuse 12/07/2023 Risk Assessment: Denies Substance Abuse Tobacco 12/07/2023 Risk Assessment: Denies Tobacco Use 12/07/2023 Tobacco Use: Never (less than 100 in l Smokeless tobacco use: Never . Physical Examination Vital Signs 06/13/2024 8:50 EDT Temperature Temporal Artery 36.6 DegC Heart Rate Monitored 69 bpm Respiratory Rate Monitored 18 br/min Systolic Blood Pressure 121 mmHg Diastolic Blood Pressure 81 mmHg Mean Arterial Pressure, Cuff 94 mmHg SpO2 96 % Vital Signs (last 24 hrs) Last Charted Temp Temporal 36.6 DegC (JUN 13 08:50) Heart Rate Monitored 69 bpm (JUN 13 08:50) Resp Rate 18 br/min (JUN 13 08:50) SBP 121 mmHg (JUN 13 08:50) DBP 81 mmHg (JUN 13 08:50) Measurements from flowsheet : Measurements 06/13/2024 8:50 EDT Height/Length Measured 152.4 cm Height/Length Dosing 152.4 cm Weight Estimated 111.13 kg Airway: Mallampati classification: II (soft palate, fauces, uvula visible). Respiratory: Lungs are clear to auscultation, Respirations are non-labored, adequate air exchange. Cardiovascular: Regular rhythm, No murmur. Review / Management Results review: No qualifying data available . Plan [place] [employer]esthesi[employer] (ASA) physical status classification: Class II. Anesthetic Preoperative Plan: Anesthesia General.[facility] Comment on above:Result Comment: Electronically Signed By: Keven KAISER, Jon Reid.br\Date and Time Signed: 06/13/24 09:20 [id number] Evaluation + Plan note Extracted from: Title:ANES Post-operative Note - General Author: Maninder Goode Jr., DO Date:11/26/23 Plan Transfer/Discharge: Transfer/Discharge Discharge when meets criteria ( From PACU to Ambulatory Surgery Unit, and To home ). Extracted from: Title:ANES Pre-operative Note - Endo Author:Lb bush Jr., DOManinder Date:11/26/23 Plan [place] [employer]esthesi[employer] (ASA) physical status classification: Class II. Anesthetic Preoperative Plan: Anesthesia General, and -TIVA. [facility]02-19-2024 Hospital Discharge instructions Patient Education 11/26/2023 08:21:59 Colon Polyps Colon Polyps Colon polyps are tissue growths inside the colon, which is part of the large intestine. They are one of the types of polyps that can grow in the body. A polyp may be a round bump or a mushroom-shapedgrowth. You could have one polyp or more than one. Most colon polyps are noncancerous (benign). However, some colon polyps can become cancerous over time. Finding and removing the polyps early can help prevent this. What are the causes? The exact cause of colon polyps is not known. What increases the risk? The following factors may make you more likely to develop this condition: Having a family history of colorectal cancer or colon polyps. Being older than 45 years of age. Being younger than 45 years of age and having a significant family history of colorectal cancer or colon polyps or a genetic condition that puts you at higher risk of getting colon polyps. Having inflammatory bowel disease, such as ulcerative colitis or Crohn's disease. Having certain conditions passed from parent to child (hereditary conditions), such as: ?Familial adenomatous polyposis (FAP). ?Larry syndrome. ?Turcot syndrome. ?Peutz Jeghers syndrome. ?MUTYH-associated polyposis (MAP). Being overweight. Certain lifestyle factors. These include smoking cigarettes, drinking too much alcohol, not gettingenough exercise, and eating a diet that is high in fat and red meat and low in fiber. Having had childhood cancer that was treated with radiation of the abdomen. What are the signs or symptoms? Many times, there are no symptoms. If you have symptoms, they may include: Blood coming from the rectum during a bowel movement. Blood in the stool (feces). The blood may be bright red or very dark in color. Pain in the abdomen. A change in bowel habits, such as constipation or diarrhea. How is this diagnosed? This condition is diagnosed with a colonoscopy. This is a procedure in which a lighted, flexible scope is inserted into the opening between the buttocks (anus) and then passed into the colon to examine the area. Polyps are sometimes found when a colonoscopy is done as part of routine cancer screening tests. How is this treated? This condition is treated by removing any polyps that are found. Most polyps can be removed during a colonoscopy. Those polyps will then be tested for cancer. Additional treatment may be needed depending on the results of testing. Follow these instructions at home: Eating and drinking Eat foods that are high in fiber, such as fruits, vegetables, and whole grains. Eat foods that are high in calcium and vitamin D, such as milk, cheese, yogurt, eggs, liver, fish, and broccoli. Limit foods that are high in fat, such as fried foods and desserts. Limit the amount of red meat, precooked or cured meat, or other processed meat that you eat, such as hot dogs, sausages, sebastian, or meat loaves. Limit sugary drinks. Lifestyle Maintain a healthy weight, or lose weight if recommended by your health care provider. Exercise every day or as told by your health care provider. Do not use any products that contain nicotine or tobacco, such as cigarettes, e- cigarettes, and chewing tobacco. If you need help quitting, ask your health care provider. Do not drink alcohol if: ?Your health care provider tells you not to drink. ?You are , may be , or are planning to become . If you drink alcohol: ?Limit how much you use to: ?0 1 drink a day for women. ?0 2 drinks a day for men. ?Know how much alcohol is in your drink. In the [place] one drink equals one 12 oz bottle of beer (355 mL), one 5 oz glass of wine (148 mL), or one 1 oz glass of hard liquor (44 mL). General instructions Take gkgv-xpi-[id number] and prescription medicines only as told by your health care provider. Keep all follow-up visits. This is important. This includes having regularly scheduled colonoscopies. Talk to your health care provider about when you need a colonoscopy. Contact a health care provider if: You have new or worsening bleeding during a bowel movement. You have new or increased blood in your stool. You have a change in bowel habits. You lose weight for no known reason. Summary Colon polyps are tissue growths inside the colon, which is part of the large intestine. They are one type of polyp that can grow in the body. Most colon polyps are noncancerous (benign), but some can become cancerous over time. This condition is diagnosed with a colonoscopy. This condition is treated by removing any polyps that are found. Most polyps can be removed during a colonoscopy. This information is not intended to replace advice given to you by your health care provider. Make sure you discuss any questions you have with your health care provider. Document Revised: 01/12/2021 Document Reviewed: 01/12/2021 [employer] Patient Education 2022 [employer]. 11/26/2023 08:21:57 Colonoscopy, Care After Surgery Salam (CUSTOM) Colonoscopy Care After Surgery Please read the instructions outlined below and refer to this sheet in the next few weeks. These discharge instructions provide you with general information on caring for yourself after you leave thehospital. Your doctor may also give you specific instructions. While your treatment has been planned according to the most current medical practices available, unavoidable complications occasionally occur. If you have any problems or questions after discharge, please call your doctor. ACTIVITY You may resume your regular activity, but move at a slower pace for the next 24 hours. Take frequent rest periods for the next 24 hours. Walking will help get rid of the air and reduce the bloated feeling in your abdomen (belly). No driving for 24 hours (because of the anesthesia (medicine) used during the test). You may shower. Do not sign any important legal documents or operate any machinery for 24 hours (because of the anesthesia used during the test). NUTRITION Drink plenty of fluids. You may resume your normal diet as instructed by your doctor. Begin with a light meal and progress to your normal diet. Heavy or fried foods are harder to digestand may make you feel nauseated (sick to your stomach). Avoid alcoholic beverages for 24 hours or as instructed. MEDICATIONS You may resume your normal medications unless your doctor tells you otherwise. WHAT YOU CAN EXPECT TODAY Some feelings of bloating in the abdomen. Passage of more gas than usual. Spotting of blood in your stool or on the toilet paper. FOLLOW-UP Your doctor will discuss the results of your test with you. SEEK IMMEDIATE MEDICAL ATTENTION IF: There is more than a spotting of blood in your stool. There is abdominal distention (your abdomen is swollen). There is vomiting. You have a temperature over 101.5 F. There is abdominal pain or discomfort that is severe or gets worse throughout the day. Follow Up Care 10/10/2023 15:51:34 With:Keith GUADARRAMA Address: [address], [address] [place] [phone]- Business (1) When:7 to 10 days [facility]01-21-2023 Evaluation note* Encounter Date Diagnosis Assessment Notes Treatment Notes Treatment Clinical Notes Oct, Acute right ankle pain (ICD-10 - M25.571) Oct, Sprain of right ankle, unspecified ligament, initial encounter (ICD-10 - S93.401A) Ankle sprain home care material was printed Drink plenty fluids, get plenty of rest. Wear the Aircast for compression and support. Ice and elevate your ankle is much as possible. Follow-up with your family physician if no improvement in 5 to 7 days [employer] Other 11-24-2021 NoteEXAMINATION: XR CHEST 2 V HISTORY: COVID-19 2 weeks ago; cough COMPARISON: XR chest 01/15/2018 FINDINGS: LUNGS: Underexpanded with moderate infiltrates within lung bases, right greater left. VASCULATURE: No increased pulmonary vasculature. PLEURA: No pneumothorax, effusion, or pleural thickening. CARDIAC: No cardiomegaly or cardiac silhouette abnormality. MEDIASTINUM: No visible mass or adenopathy. BONES: Old, healed right clavicle fracture. OTHER: Negative. IMPRESSION: 1. Moderate bilateral pulmonary infiltrates suggestive of pneumonia; right greater than left. Electronically authenticated by: THERESE ARCE Date: 2021-08-31 12:17[facility] Future App[facility]ments Appointment Date:11/26/2023 08:00:00 AM Scheduled Provider: Location:[facility] Appointment Type:Surgery FT General Surgery [place] Evaluation + Plan note Future Appointments Appointment Date:07/20/2025 08:30:00 AM Scheduled Provider: Location:[facility] Appointment Type:Surgery FT [facility] [place] Evaluation noteNo assessment information available [facility] Work Phone: History general Narrative - Reported* Type Description Date Surgical History back surgery 2008 Hospitalization History see above surgical histo ry [facility] [employer] Other Hospital course Narrative No data available for this section [facility] Discharge instructions No data available for this section General Surgery [place] Progress note No data available for this section General [place] Summary Purpose Family History No Family History Records FoundNo Family History Records Found No data available for this section No data available for this section No data available for this section No data available for this section No data available for this section No Family History Records Found Advance Directives No Advanced Directives Records FoundNo Advanced Directives Records FoundNo Advanced Directives Records Found Additional Source Comments (unrecognized sect ion and content) No Status Records FoundNo Status Records FoundNo Status Records Found INFORMATION SOURCE (unrecogn ized section and content) DATE CREATED AUTHOR 09/11/2021 [facility] DATE CREATED AUTHOR AUTHOR'S ORGANIZ ATION 01/05/2023 [facility] DATE CREATED AUTHOR AUTHOR'S ORGANIZ ATION 06/12/2025 [facility] Teams (unrecognized sec tion and content) Team Status: Inactive Member Role Status Dates Jordy Valerio MD Primary Care Provider Active JESSICA Pozo Attending Provider Active Team Status: Active Member Role Status Dates Jordy Valerio MD Primary Care Provider Active Goals (unrecognized section and content) Goals may be documented in a n alternate sectionNo Information No data available for this section No data available for this section No data available for this section No data available for this section No data available for this section REASON FOR VISIT (unrecogniz ed section and content) RIGHT ANKLE INJURY FOR RECORDS PERTAINING TO PATIENTS WHO ARE OR HAVE BEEN ENROLLED IN A CHEMICAL DEPENDENCY/SUBSTANCEABUSE PROGRAM, SOME INFORMATION MAY BE OMITTED. This clinical summary was aggregated from multiple sources. Caution should be exercised in using it in the provision of clinical care. This summary normalizes information from multiple sources, and as a consequence, information in this document may materially change the coding, format and clinical context of patient data. In addition, data may be omitted in some cases. CLINICAL DECISIONS SHOULD BE BASED ON THE PRIMARY CLINICAL RECORDS. [facility]. provides no warranty or guarantee of the accuracy or completeness of information in this document.
[2025-06-13 09:17] LABS: Alanine Aminotransferase 50 U/L (16-63); Albumin Globulin Ratio 1.0; Albumin Level 3.6 g/dL (3.4-5.0); Alkaline Phosphatase 77 U/L (46-116); Anion Gap 14.7; Aspartate Amino Transferase 24 U/L (15-37); Blood Urea Nitrogen 13.0 mg/dL (7.0-18.0); Calcium 8.6 mg/dL (8.5-10.1); Carbon Dioxide 24.4 mmol/L (21.0-32.0); Chloride 105 mmol/L (98-107); Estimated GFR (African America >60 (>=60 mL/min/1.73m^2); Estimated GFR (Non-African Ame >60 (>=60 mL/min/1.73m^2); Globulin 3.5 g/dL; Glucose 107 mg/dL (74-106); Potassium 4.1 mmol/L (3.5-5.1); Sodium 140 mmol/L (136-145); Total Protein 7.1 g/dL (6.4-8.2)
== END 2025-06-13 08:15 | disposition home or self-care (01) ==
LOC: LAB 08:18
PROVIDERS: PCP Family Medicine; Visit Provider Family Medicine
DX: R73.09 Other abnormal glucose (principal); R63.1 Polydipsia
CPT/HCPCS: 36415; 80053; 83036; 83525